=== PATIENT | female | born 1965 | race Two or more races ===

== ENCOUNTER 2020-10-29 19:19 | Emergency (ER) | payer SELFPAY ==
--- NOTE | 2020-10-29 19:34 | ER Document Report ---
ED Medical Screen (RME) - General Chief Complaint: Leg Pain Stated Complaint: LEFT LEG/FOOT PAIN Time Seen by Provider: 10/29/20 19:31 Notes: This 55-year-old female presents emergency department with a chief complaint of left leg and foot pain. States the pain has been on and off for the past month, but worsened over the last couple of days. Exam: Tender left foot. I have greeted and performed a rapid initial assessment of this patient. A comprehensive ED assessment and evaluation of the patient, analysis of test results and completion of medical decision making process will be conducted by an additional ED providers. - Related Data Allergies/Adverse Reactions: No Known Allergies Allergy (Verified 10/29/20 19:32)
--- NOTE | 2020-10-29 20:33 | RADIOLOGY REPORT (SQ) ---
CLINICAL INDICATION: left foot pain. . TECHNIQUE: 3 view(s) were obtained of the left foot. COMPARISON: None. FINDINGS: No acute displaced fracture is identified of the foot. Alignment appears anatomic. Joint spaces are within normal limits for age. Surrounding soft tissues are unremarkable. Anterior posterior calcaneal spurring IMPRESSION: No evidence of acute displaced fracture of the foot.
--- NOTE | 2020-10-29 22:21 | ER Document Report ---
HPI - HPI Time Seen by Provider: 10/29/20 19:31 Pain Level: 0 Context: This 55-year-old female presents emergency department with a chief complaint of left leg and foot pain. States the pain has been on and off for the past month, but worsened over the last couple of days. Denies any current injury, but states that she fell a few months back. States that the pain is mainly on the left side of her foot. States that she recently traveled here from [place]. - ROS Systems Reviewed and Negative: Yes All other systems reviewed and negative - CONSTITUTIONAL Constitutional: DENIES: Fever, Chills - RESPIRATORY Respiratory: DENIES: Trouble Breathing, Coughing - MUSCULOSKELETAL Musculoskeletal: REPORTS: Extremity pain - Left foot/left leg, Swelling - left foot - DERM Skin Color: Normal Skin Problems: None Past Medical History - General Information source: Patient - Social History Smoking Status: Never Smoker Chew tobacco use (# tins/day): No Frequency of alcohol use: None Drug Abuse: None Family History: Reviewed & Not Pertinent Vertical Provider Document - CONSTITUTIONAL Agree With Documented VS: Yes Exam Limitations: No Limitations General Appearance: No Apparent Distress - HEENT HEENT: Atraumatic, Normocephalic, PERRLA - NECK Neck: Normal Inspection - RESPIRATORY Respiratory: No Respiratory Distress - CARDIOVASCULAR Cardiovascular: Regular Rhythm, Tachycardia Pulses: Normal: Posterior tibial, Dorsalis pedis - MUSCULOSKELETAL/EXTREMETIES Musculoskeletal/Extremeties: FROM, Tender - Left lateral foot near 4th metatarsal/tarsal joints, Edema - slight to left foot - NEURO Level of Consciousness: Awake, Alert, Appropriate Motor/Sensory: No Motor Deficit, No Sensory Deficit - DERM Integumentary: Warm, Dry, No Rash Course - Re-evaluation Re-evalutation: 10/29/20 22:15 X-ray is unremarkable. No fracture noted. Venous Doppler study is negative. Capillary refill less than 3 seconds. Dorsalis pedis and posterior tibial pulses 2+. No vascular compromise noted. I offered the patient crutches, Thor wrap, and ankle stirrup, but she states that she has this at home. Advised to take Aleve twice a day, as she has not been taking it twice a day. She will follow-up with her primary care provider in [place]. She is in agreement with this plan. Follow-up precautions were given. Verbal discharge instructions were given to the patient. They verbalized understanding. They are stable for discharge. - Vital Signs Vital signs: Temp Pulse Resp BP Pulse Ox 98.2 F 109 H 17 163/107 H 98 10/29/20 19:35 10/29/20 19:35 10/29/20 19:35 10/29/20 19:35 10/29/20 19:35 - Laboratory Results Critical Laboratory Results Reviewed: No Critical Results - Radiology Results Critical Radiology Results Reviewed: No Critical Results Discharge - Discharge Clinical Impression: Left foot pain, Left leg pain Condition: Stable Disposition: HOME, SELF-CARE Additional Instructions: Patient is he was seen today in the emergency department for leg pain. You do not have a blood clot and your x-ray was normal. Please follow-up with your primary care provider when you get home to [place] and see if he can get a referral for physical therapy. Use your crutches and take it easy for the next couple of days. Also use the Thor wrap and boot that you have at home. Take Aleve twice a day for pain relief and swelling.
[2020-10-29 22:36] VITALS: BP 158/102
--- NOTE | 2020-10-30 08:39 | RADIOLOGY REPORT (SQ) ---
EXAM DESCRIPTION: VENOUS UNILATERAL LOWER IMAGES COMPLETED DATE/TIME: 10/29/2020 10:11 pm REASON FOR STUDY: left leg pain COMPARISON: None. TECHNIQUE: Dynamic and static kyle scale and color images acquired of the left leg venous system. Se lected spectral images acquired with additional compression and augmentation maneuvers. The contralat eral common femoral vein and saphenofemoral junction were also imaged. Images stored on PACS. LIMITATIONS: None. FINDINGS: COMMON FEMORAL: Normal phasicity, compression and augmentation. No visualized echogenic ma terial on kyle scale. No defects on color images. FEMORAL: Normal compression and augmentation. No visualized echogenic material on kyle scale. No defe cts on color images. POPLITEAL: Normal compression, augmentation. No visualized echogenic material on kyle scale. No defec ts on color images. CALF VESSELS: Normal compression, augmentation. No visualized echogenic material on kyle scale. No de fects on color images. GSV and SSV: Normal compression, augmentation. No visualized echogenic material on kyle scale. No def ects on color images. ANY DEEP VENOUS INSUFFICIENCY: No. ANY EVIDENCE OF POPLITEAL CYST: No. OTHER: No other finding. CONTRALATERAL COMMON FEMORAL VEIN: Normal phasicity, compression and augmentation. No visualized echogenic material on kyle scale. No de fects on color images. IMPRESSION: NO EVIDENCE OF DVT OR SVT IN THE LEFT LEG. TECHNICAL DOCUMENTATION: JOB ID: [id number] 2010 [employer] All Rights Reserved Reading location - IP/workstation name: [email or web address]
== END 2020-10-29 22:30 | disposition home or self-care (01) ==
LOC: ER 19:19
DX: M79.672 Pain in left foot (principal); M79.605 Pain in left leg
CPT/HCPCS: 93971; 99284